=== PATIENT | male | born 1955 | race Caucasian/White ===

== ENCOUNTER 2019-11-02 08:13 | Day surgery (SDC) | payer OTHER ==
[2019-10-30 10:44] VITALS: BMI 28.6
[2019-11-02 08:30] VITALS: TEMP 97.3
[2019-11-02] MEDS ORDERED: PROPOFOL 20 ML ONE ×2 (11:01)
[2019-11-02] MEDS ORDERED: ONDANSETRON 4 MG/2 ML VIAL IVPUSH PRN (11:31)
[2019-11-02] MEDS ORDERED: oxyCODONE HCL 5 MG TABLET PO PRN (11:31)
[2019-11-02] MEDS ORDERED: LACTATED RINGERS SOLUTION 1,000 ML IV SCH (11:45)
--- NOTE | 2019-11-02 12:07 | OP ---
Operative Note - Note: Operative Date: 11/02/19 Pre-Operative Diagnosis: Left renal stones Operation: Left ESWL Findings: 5 mm mid and 5 mm lower pole Left renal stones Post-Operative Diagnosis: Same as Pre-op Surgeon: Khari Alfaro Anesthesia: Fractional Estimated Blood Loss (mls): 0 Operative Report Dictated: Yes
[2019-11-02 13:22] VITALS: BP 137/81; PULSE 72
--- NOTE | 2019-11-03 13:46 | OP ---
DATE OF OPERATION: 11/02/2019 PREOPERATIVE DIAGNOSIS: Left renal stone. POSTOPERATIVE DIAGNOSIS: Left renal stone. PROCEDURE: Left extracorporeal shock-wave lithotripsy. ATTENDING: Roxann Dunlap MD ANESTHESIA: Fractional. DESCRIPTION OF PROCEDURE: Patient was brought in the operating room. Placed in a supine position on the operating room table. Ultrasonography and fluoroscopy were performed. Two stones were found in the left kidney each measuring 5 mm. One 5-mm stone was in the mid pole calyx, and a second 5-mm stone was in the lower pole calyx. It was decided to utilize this session of lithotripsy on 1 stone in order to achieve an adequate result. The mid pole stone was targets, and 2500 impulses at 17 joules of power were administered to the stone with excellent fragmentation noted. The residual 5-mm stone will need a follow up extracorporeal shock-wave lithotripsy later date. The patient tolerated the procedure very well. There were no complications noted. DISPOSITION: To recovery room. ROXANN DUNLAP M.D. [id number]
== END 2019-11-02 13:24 | disposition home or self-care (01) ==
LOC: JASU-SURG 08:13
PROVIDERS: ATTEND Urology
PROC: 0TF4XZZ Fragmentation in Left Kidney Pelvis, External Approach (ICD-10-PCS; principal; 2019-11-02 10:15)
DX: N20.0 Calculus of kidney (principal)

== ENCOUNTER 2023-08-19 03:54 | Day surgery (SDC) | payer OTHER ==
[2023-08-12 11:24] VITALS: BMI 30.5
[2023-08-19 07:16] VITALS: RESP 18
[2023-08-19] MEDS ORDERED: MIDAZOLAM HCL 2 MG/2 ML SINGLE DOSE VIAL ONE (08:30)
[2023-08-19] MEDS ORDERED: FENTANYL CITRATE/PF 50 MCG/ML VIAL ONE (08:30)
[2023-08-19 09:10] VITALS: BP 126/84; PULSE 77; TEMP 98.5
== END 2023-08-19 09:33 | disposition home or self-care (01) ==
LOC: JASU-SURG 03:54
PROVIDERS: ATTEND Urology
PROC: 0TF4XZZ Fragmentation in Left Kidney Pelvis, External Approach (ICD-10-PCS; principal; 2023-08-19 08:30)
DX: N20.0 Calculus of kidney (principal)